=== PATIENT | male | born 1985 | race Caucasian/White ===

== ENCOUNTER 2019-09-14 14:37 | Emergency (ER) | payer SELFPAY ==
[~2019-09-14] VITALS: Ht 195.6 cm; Wt 126.2 kg
--- NOTE | 2019-09-14 15:24 | NUR ---
UA SENT TO LAB.
[2019-09-14] MEDS ORDERED: AZITHROMYCIN 500 MG TABLET PO ONE (15:30)
[2019-09-14] MEDS ORDERED: CEFTRIAXONE 250 MG IM ONE (15:30)
[2019-09-14] MEDS ORDERED: CEFTRIAXONE 250 MG ONE (15:34)
[2019-09-14] MEDS ORDERED: LIDOCAINE-MPF 1%, 2ML ONE (15:34)
[2019-09-14] MEDS ORDERED: AZITHROMYCIN 500 MG TABLET ONE (15:34)
--- NOTE | 2019-09-14 15:41 | NUR ---
medicated per emar
== END 2019-09-14 16:04 | disposition home or self-care (01) ==
LOC: ED 15:58
DX: N34.1 Nonspecific urethritis (principal)
CPT/HCPCS: 87491; 87591; 96372; 99283; J0696

== ENCOUNTER 2020-05-25 15:37 | Emergency (ER) | payer MEDICAID, OTHER ==
[~2020-05-25] VITALS: Ht 195.6 cm; Wt 130.0 kg
--- NOTE | 2020-05-25 15:56 | NUR ---
PT STATES RLQ ABD PAIN X3 WEEKS OFF AND ON. PT SENT FROM [facility] FOR R/O APPY. PT STATES 2/10 PAIN CURRENTLY. ERMD AT BEDSIDE FOR ASSESSMENT.
[2020-05-25] MEDS ORDERED: SODIUM CHLORIDE FLUSH 10ML SYR IVF ONE (16:00)
[2020-05-25 16:15] LABS: BASOPHILS # (AUTO) 0.03 x10^3/uL (0-0.1); BASOPHILS % (AUTO) 0 % (0-1); EOSINOPHILS # (AUTO) 0.29 x10^3/uL (0-0.4); EOSINOPHILS % (AUTO) 3 % (1-7); LYMPHOCYTES # (AUTO) 1.44 x10^3/uL (1-3.4); LYMPHOCYTES % (AUTO) 15 % (22-44); MD NO; MEAN CORPUSCULAR HEMOGLOBIN 29.6 pg (27.5-34.5); MEAN CORPUSCULAR HGB CONC 32.8 g/dL (33.2-36.2); MEAN CORPUSCULAR VOLUME 90.4 fL (81-97); MEAN PLATELET VOLUME 8.4 fL (7.4-10.4); MONOCYTES # (AUTO) 0.74 x10^3/uL (0.2-0.8); MONOCYTES % (AUTO) 7 % (2-9); NEUTROPHILS # (AUTO) 7.47 x10^3/uL (1.8-6.8); NEUTROPHILS % (AUTO) 75 % (42-75); PLATELET COUNT 350 x10^3/uL (130-400); RED CELL DISTRIBUTION WIDTH 13.4 % (9.4-14.8)
[2020-05-25 16:25] LABS: ALBUMIN 3.1 g/dL (3.4-5.0); ANION GAP 3 mmol/L (5-15); CHLORIDE 107 mmol/L (98-107)
[2020-05-25 16:29] LABS: ALANINE AMINOTRANSFERASE 11 U/L (12-78); ALKALINE PHOSPHATASE 66 U/L (45-117); BILIRUBIN,TOTAL 0.7 mg/dL (0.2-1.0); CREATININE 1.04 mg/dL (0.7-1.3); TOTAL PROTEIN 7.3 g/dL (6.4-8.2)
[2020-05-25 16:36] LABS: CALCIUM 8.3 mg/dL (8.5-10.1)
--- NOTE | 2020-05-25 17:05 | NUR ---
PT TO IMAGING. AWARE NEEDS UA.
[2020-05-25] MEDS ORDERED: OMNIPAQUE 350 MG/ML, 100ML BOTTLE ONE (17:17)
[2020-05-25 17:49] LABS: MICROSCOPIC NOT IND
--- NOTE | 2020-05-25 18:02 | NUR ---
PT OK FOR D/C PER ERMD. IV REMOVED. PT AWAITING RIDE FROM ALF.
[2020-05-25 18:31] VITALS: BP 132/72
== END 2020-05-25 18:34 | disposition home or self-care (01) ==
LOC: ED 16:37
DX: A09 Infectious gastroenteritis and colitis, unspecified (principal)
CPT/HCPCS: 36415; 74177; 80053; 81003; 83690; 85025; 99285; Q9967